=== PATIENT | female | born 1965 | race Caucasian/White ===

== ENCOUNTER 2016-11-03 10:57 | Outpatient (CLI) | payer OTHER | END 2016-11-03 10:58 | disposition home or self-care (01) | DX: M22.41 Chondromalacia patellae, right knee (principal); M71.21 Synovial cyst of popliteal space [Baker], right knee ==

== ENCOUNTER 2017-03-21 09:59 | Outpatient (CLI) | payer OTHER ==
--- NOTE | 2017-03-22 17:44 | Mammography Report ---
DIGITAL SCREENING MAMMOGRAM: 03/21/2017 CLINICAL INDICATION: A 51-year-old with history of bilateral augmentation for screening. COMPARISON: 02/2016, 12/2014, 10/2013, 10/2012, 10/2011, 10/2010, 11/2009. TECHNIQUE: Routine CC and MLO projections were obtained of the breasts. The breasts again demonstrate extremely dense parenchymal bilaterally. Punctate, typically benign ca lcifications are present. Bilateral subpectoral saline implants are stable. No suspicious masses, c lustered microcalcifications, or regions of architectural distortion are identified. IMPRESSION: BENIGN FINDINGS. RECOMMENDATION: ROUTINE ANNUAL SCREENING UNLESS OTHERWISE CLINICALLY INDICATED. BIRADS CATEGORY: 2, BENIGN FINDINGS. STANDARD QUALIFYING STATEMENTS 1. This examination was reviewed with the aid of Computed-Aided Detection (CAD). 2. A negative or benign imaging report should not delay biopsy if clinically suspicious findings are present. Consider surgical consultation if warranted. More than 5% of cancers are not identified b y imaging. 3. Dense breasts may obscure an underlying neoplasm. JOB #: [id number] EXT JOB #:[id number]
== END 2017-03-21 10:00 | disposition home or self-care (01) ==
LOC: DI 09:59
PROVIDERS: ATTEND Obstetrics & Gynecology
DX: Z12.31 Encounter for screening mammogram for malignant neoplasm of breast (principal); Z98.82 Breast implant status
CPT/HCPCS: 77067

== ENCOUNTER 2017-08-30 08:48 | Outpatient (CLI) | payer OTHER ==
--- NOTE | 2017-08-30 13:01 | Ultrasound Report ---
DATE OF SERVICE: 08/30/2017 RIGHT BREAST ULTRASOUND: 08/30/2017 CLINICAL INDICATION: Painful palpable abnormality. right upper inner quadrant. TECHNIQUE: Real-time scanning was performed with business representative static images obtained. FINDINGS: Ultrasound of the right upper inner quadrant was performed. The patient was unable to identify a palpable abnormality on the day of the examination. Heterogeneous parenchyma is seen. No discrete solid or cystic mass is identified. No sonographically suspicious findings are seen. IMPRESSION: NEGATIVE EXAMINATION. RECOMMENDATION: Routine annual screening, next due in February 2018, unless otherwise clinically indicated. BIRADS CATEGORY 1 - NEGATIVE. TD: 08/30/2017 13:00
--- NOTE | 2017-08-30 15:33 | Mammography Report ---
DATE OF SERVICE: 08/30/2017 DIGITAL DIAGNOSTIC RIGHT MAMMOGRAM: 08/30/2017 CLINICAL INDICATION: Palpable painful abnormality right upper inner quadrant. TECHNIQUE: Right CC, MLO, and implant displaced views. The patient was unable to identify the palpable abnormality at the time of the examination, so no marker was placed. COMPARISON: 03/21/2017, 03/15/2016, 12/29/2014, 10/30/2013, 10/28/2012, 11/07/2011, 11/07/2010, 12/06/2009. FINDINGS: The right breast again demonstrates heterogeneously dense fibroglandular parenchyma. Punctate, typically benign calcifications are present. Subpectoral saline implant is stable. No suspicious masses, clustered microcalcifications, or regions of architectural distortion are identified. Specifically, no mammographic abnormality is appreciated in the right upper inner quadrant, in the region indicated on the requisition. Please also refer to right breast ultrasound of the same day. IMPRESSION: BENIGN FINDINGS. RECOMMENDATION: Routine annual screening, next due in February 2018, unless otherwise clinically indicated. BIRADS CATEGORY 2 BENIGN FINDINGS. STANDARD QUALIFYING STATEMENTS: 1. This examination was reviewed with the aid of Computer-Aided Detection (CAD). 2. A negative or benign imaging report should not delay biopsy if clinically suspicious findings are present. Consider surgical consultation if warranted. More than 5% of cancers are not identified by imaging. 3. Dense breasts may obscure an underlying neoplasm. TD: 08/30/2017 15:32
== END 2017-08-30 08:49 | disposition home or self-care (01) ==
LOC: DI 08:48
PROVIDERS: ATTEND Obstetrics & Gynecology
DX: N63.12 Unspecified lump in the right breast, upper inner quadrant (principal); Z98.82 Breast implant status
CPT/HCPCS: 76642

== ENCOUNTER 2017-11-22 10:07 | Outpatient (CLI) | payer OTHER | END 2017-11-22 10:08 | disposition home or self-care (01) | LOC: LAB 10:07 | PROVIDERS: ATTEND Obstetrics & Gynecology | DX: N92.6 Irregular menstruation, unspecified (principal) | CPT/HCPCS: 36415; 83001 ==

== ENCOUNTER 2017-11-23 08:47 | Outpatient (CLI) | payer OTHER ==
--- NOTE | 2017-11-23 12:11 | XRAY Report ---
COMPLETE LUMBAR SPINE: 11/23/2017 CLINICAL INDICATION: Lumbar radiculopathy. FINDINGS: AP, lateral, oblique, coned down views of the lumbar spine demonstrate minimal degenerative disk and facet disease, with mild levoscoliosis. There is no evidence of compression fracture or subluxation. An IUD is incidentally noted in the pelvis. IMPRESSION: MINIMAL DEGENERATIVE CHANGES, WITH MILD LEVOSCOLIOSIS. TD: 11/23/2017 12:11
== END 2017-11-23 08:48 | disposition home or self-care (01) ==
LOC: DI 08:47
PROVIDERS: ATTEND Family Medicine
DX: M51.36 Other intervertebral disc degeneration, lumbar region (principal); M47.896 Other spondylosis, lumbar region; M41.86 Other forms of scoliosis, lumbar region
CPT/HCPCS: 72110

== ENCOUNTER 2018-02-14 13:24 | Outpatient (CLI) | payer OTHER ==
--- NOTE | 2018-02-15 10:37 | MRI Report ---
Procedure Date: 02/14/2018 Accession Number: [id number] / [id number] Procedure: MRI - Lumbar Spine W/O CPT Code: FULL RESULT: EXAM: MRI LUMBAR SPINE WITHOUT CONTRAST EXAM DATE: 02/14/2018 02:07 PM. CLINICAL HISTORY: Chronic low back pain. Bilateral lumbar radiculopathy. COMPARISON: Lumbar spine complete 11/23/2017. TECHNIQUE: Multiplanar, multisequence T1-weighted and fluid-sensitive sequences of the lumbar spine from T12 to S1 without contrast. Other: None. FINDINGS: Alignment: Mild levoscoliosis. Spinal Canal: The conus terminates at L1. The conus medullaris and cauda equina are unremarkable. Bone Marrow: Five [id number] lumbar vertebral bodies are assumed. Vertebral body heights are maintained. No acute marrow edema or displaced pars defect. Disk Levels/Facets: T12-L1: No stenosis or disk herniation. Minimal disk space narrowing and dehydration. L1-L2: No stenosis or disk herniation. Minimal disk space narrowing and dehydration. L2-L3: Minimal disk space dehydration and narrowing. Shallow circumferential disk bulge. Anterior annular fissure. No disk extrusion or significant stenosis. Minimal if any facet arthropathy. L3-L4: Minimal to mild disk space dehydration and narrowing with circumferential disk bulge. Minimal if any facet arthropathy. Additional shallow broad-based right intraforaminal and far lateral protrusion. Minimal foraminal narrowing on the right without nerve root impingement. Patent central canal and left foramen. L4-L5: Intact disk space. Minimal annular bulge. No focal extrusion. Minimal to mild facet hypertrophy. No significant stenosis or focal nerve root impingement. L5-S1: Unremarkable. Musculature: Normal. No edema or fatty atrophy. Other: None. IMPRESSION: Mild multilevel degenerative changes but no evidence for significant stenosis or focal nerve root impingement to explain a radiculopathy. Comment: The following findings are so common in adults without low back pain that while we report their presence, they must be interpreted with caution and in the context of the clinical situation. (Reference Rositak et al, Spine 2001) Prevalence of findings in patients without low back pain: Disk degeneration (any evidence): 92% Disk desiccation/T2 signal loss: 83% Disk height loss: 56% Disk bulge: 64% Disk protrusion: 32% Annular tear/high intensity zone: 38% RADIA
== END 2018-02-14 13:25 | disposition home or self-care (01) ==
LOC: DI 13:24
PROVIDERS: ATTEND Physician Assistant Medical
DX: M51.36 Other intervertebral disc degeneration, lumbar region (principal); M47.896 Other spondylosis, lumbar region
CPT/HCPCS: 72148

== ENCOUNTER 2018-02-28 17:14 | Outpatient (CLI) | payer OTHER | END 2018-02-28 17:15 | disposition home or self-care (01) | LOC: DI 17:14 | PROVIDERS: ATTEND Obstetrics & Gynecology | DX: Z53.9 Procedure and treatment not carried out, unspecified reason (principal) ==

== ENCOUNTER 2018-03-03 15:11 | Outpatient (CLI) | payer OTHER ==
--- NOTE | 2018-03-03 22:28 | Ultrasound Report ---
Procedure Date: 03/03/2018 Accession Number: [id number] / [id number] Procedure: US - Pelvic w/Transvaginal CPT Code: FULL RESULT: EXAM: PELVIC ULTRASOUND. EXAM DATE: 03/03/2018 04:40 PM. CLINICAL HISTORY: Heavy regular menses, dysmenorrhea. COMPARISON: None. TECHNIQUE: Realtime transabdominal pelvic scan performed to identify the uterus and adnexa and as an overview of other pelvic structures, followed by transvaginal scan to provide greater detail of the uterus and adnexa, with static image documentation. FINDINGS: Uterus: 8.1 x 5.5 x 3.6 cm, volume 83.8 cc. Anteverted position. Masses: Anterior fundal intramural fibroid measuring 1.3 x 1.8 x 1.2 cm. Posterior subserosal fibroid measuring 1 x 1 x 0.7 cm. Posterior transmural fibroid measuring 1.4 x 1.1 x 1.4 cm. Endometrium: 3.8 mm. Normal. Cervix: Unremarkable. Right Ovary: Not visualized. Obscured by bowel gas. No abnormality seen in the right adnexa. Left Ovary: 2.2 x 3 x 1.7 cm, volume 5.8 cc. Normal echotexture and blood flow. Dominant follicle measures 1.2 x 1.7 x 1.5 cm, appears simple. Free Fluid: None. IMPRESSION: 1. A few uterine fibroids as described above. The endometrium appears within normal limits. 2. The right ovary is not visualized, obscured by bowel gas. 3. Dominant simple appearing follicle in the left ovary, measures 1.7 cm. RADIA
== END 2018-03-03 15:12 | disposition home or self-care (01) ==
LOC: DI 15:11
PROVIDERS: ATTEND Obstetrics & Gynecology
DX: N94.6 Dysmenorrhea, unspecified (principal); N92.0 Excessive and frequent menstruation with regular cycle; D25.1 Intramural leiomyoma of uterus; D25.2 Subserosal leiomyoma of uterus
CPT/HCPCS: 76830; 76856

== ENCOUNTER 2018-10-15 08:59 | Outpatient (CLI) | payer OTHER ==
[2018-10-15 09:43] LABS: BILIRUBIN,URINE NEGATIVE (NEGATIVE); GLUCOSE, URINE (UA) NEGATIVE (NEGATIVE); KETONES,URINE (UA) NEGATIVE (NEGATIVE); LEUKOCYTE ESTERASE, URINE NEGATIVE (NEGATIVE); NITRITE,URINE NEGATIVE (NEGATIVE); OCCULT BLOOD,URINE TRACE-INTA (NEGATIVE); PROTEIN,URINE NEGATIVE (NEGATIVE); UROBILINOGEN,URINE 0.2 (NORMAL) E.U./dL (NORMAL)
[2018-10-15 09:44] LABS: BASOPHILS % (AUTO) 1.3 %; EOSINOPHILS # (AUTO) 0.1 10^3/uL (0.0-0.7); EOSINOPHILS % (AUTO) 2.8 %; LYMPHOCYTES # (AUTO) 1.2 10^3/uL (1.5-3.5); LYMPHOCYTES % (AUTO) 36.4 %; MEAN CORPUSCULAR HEMOGLOBIN 32.2 pg (27.0-31.0); MEAN CORPUSCULAR HGB CONC 35.2 g/dL (32.0-36.0); MEAN CORPUSCULAR VOLUME 91.5 fL (81.0-99.0); MEAN PLATELET VOLUME 9.3 fL (7.9-10.8); MONOCYTES # (AUTO) 0.3 10^3/uL (0.0-1.0); MONOCYTES % (AUTO) 8.3 %; NEUTROPHILS # (AUTO) 1.7 10^3/uL (1.5-6.6); NEUTROPHILS % (AUTO) 51.2 %; PLT - PLATELET COUNT 178 10^3/uL (130-450); RED BLOOD COUNT 4.05 10^6/uL (4.20-5.40); RED CELL DISTRIBUTION WIDTH 13.3 % (12.0-15.0); WHITE BLOOD COUNT 3.4 x10^3/uL (4.8-10.8)
[2018-10-15 09:48] LABS: CLARITY,URINE CLEAR (CLEAR)
[2018-10-15 10:04] LABS: HB2 TOTAL 14.2 g/dL; HEMOGLOBIN A1C 0.51 g/dL; HEMOGLOBIN A1C % 5.4 % (4.6-6.2)
[2018-10-15 10:09] LABS: ALBUMIN 4.4 g/dL (3.2-5.5); ALBUMIN/GLOBULIN RATIO 1.6 (1.0-2.2); ALKALINE PHOSPHATASE 41 IU/L (42-121); ALT ALANINE AMINOTRANSFERASE 22 IU/L (10-60); AST ASPARTATE AMINOTRANSFERASE 29 IU/L (10-42); BILIRUBIN,TOTAL 1.3 mg/dL (0.2-1.0); BUN - BLOOD UREA NITROGEN 14 mg/dL (6-20); CALCIUM 9.3 mg/dL (8.5-10.3); CARBON DIOXIDE - CO2 26 mmol/L (21-32); CHLORIDE 98 mmol/L (101-111); CHOL/HDL RATIO 2.2 (<4.4); CHOLESTEROL 218 mg/dL; CREATININE 0.7 mg/dL (0.4-1.0); GFR - MDRD 87 (>89); GLUCOSE 99 mg/dL (70-100); HDL CHOLESTEROL 101 mg/dL; SODIUM 132 mmol/L (135-145); TOTAL PROTEIN 7.2 g/dL (6.7-8.2)
[2018-10-15 10:10] LABS: CRP - C-REACTIVE PROTEIN < 1.0 mg/dL (0-1.0)
[2018-10-15 10:28] LABS: LDL CHOLESTEROL,DIRECT 107 mg/dL; LDLD/HDL RATIO 1.1 (<4.4)
== END 2018-10-15 09:00 | disposition home or self-care (01) ==
LOC: LAB 08:59
PROVIDERS: ATTEND Obstetrics & Gynecology
DX: E55.9 Vitamin D deficiency, unspecified (principal); M25.50 Pain in unspecified joint; Z13.220 Encounter for screening for lipoid disorders; Z13.1 Encounter for screening for diabetes mellitus; Z13.29 Encounter for screening for other suspected endocrine disorder
CPT/HCPCS: 36415; 80053; 80061; 81003; 82306; 83036; 83721; 84443; 85025; 85651; 86140

== ENCOUNTER 2018-11-20 08:48 | Outpatient (CLI) | payer OTHER ==
--- NOTE | 2018-11-20 11:30 | Mammography Report ---
Reason: MASTODYNIA,LEFT Procedure Date: 11/20/2018 Accession Number: [id number] / [id number] Procedure: ASHA - Diagnostic Dig Bilat CPT Code: FULL RESULT: EXAM: Diagnostic Dig Bilat DATE: 11/20/2018 9:54 AM CLINICAL HISTORY: Diagnostic examination. Left breast pain in the axilla for approximately one year. TECHNIQUE: (B) - Bilateral CC and MLO views were obtained. MLO views were obtained of the left breast. COMPARISON: 08/30/2017 through 10/28/2012. PARENCHYMAL PATTERN: (VD) - The breast(s) demonstrate(s) extremely dense parenchyma, limiting the sensitivity of mammography. FINDINGS: There are coarse typically benign calcifications. Seen on the left side only, on the left MLO view a prominent axillary nodes individually less than 1 cm in short axis. This finding was further interrogated by focal left axillary ultrasound which demonstrated morphologically normal lymph nodes measuring less than 1 cm in short axis. There are no suspicious masses, calcifications, or areas of distortion within the breast on either side. IMPRESSION: Benign findings. BI-RADS category 2. RECOMMENDATION: (CLIN) - Clinical follow-up for symptoms is recommended. Resolution of reactive lymph nodes is expected. If symptoms persist, repeat diagnostic examination. Continue annual screening mammography. BI-RADS CATEGORY: (2) - Benign Findings. STANDARD QUALIFYING STATEMENTS: 1. This examination was not reviewed with the aid of Computer-Aided Detection (CAD). 2. A negative or benign imaging report should not preclude biopsy if clinically suspicious findings are present. 3. Dense breasts may obscure an underlying neoplasm. 4. This examination was reviewed with the aid of 3D breast imaging (tomosynthesis).
== END 2018-11-20 08:49 | disposition home or self-care (01) ==
LOC: DI 08:48
PROVIDERS: ATTEND Obstetrics & Gynecology
DX: N64.4 Mastodynia (principal)
CPT/HCPCS: 76642; 77066

== ENCOUNTER 2018-12-10 17:08 | Emergency (ER) | payer OTHER ==
--- NOTE | 2018-12-10 17:40 | ED Physician Documentation ---
History of Present Illness - Stated complaint Stated Complaint: DIZZY,BLURRY VISION - Chief complaint Chief Complaint: Neuro - History obtained from History obtained from: Patient - History of Present Illness Timing: Yesterday Pain level max: 0 Pain level now: 0 - Additonal information Additional information: states has felt dizzy since yesterday. States that her R foot felt heavy last night. States this feels normal now. States her vision is blurry. She feels like she is leaning to the L. States feels lightheaded. Room is not spinning. Better with rest. worse with movement. Has had a gradual onset headache today. No fevers. 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 - Present Medications Home Medications: Ambulatory Orders Medication Instructions Recorded Confirmed Spironolactone 25 mg PO DAILY 12/10/14 12/10/18 - Allergies Allergies/Adverse Reactions: Allergies Allergy/AdvReac Type Severity Reaction Status Date / Time Sulfa (Sulfonamide AdvReac Rash Verified 12/10/18 17:20 Antibiotics) - Social History Does the pt smoke?: No Smoking Status: Never smoker Does the pt drink ETOH?: Yes Does the pt have substance abuse?: No - Immunizations Immunizations are current?: Yes - POLST Patient has POLST: No PD ED PE NORMAL - Vitals Vital signs reviewed: Yes - General General: Alert and oriented X 3, No acute distress, Well developed/nourished - HEENT HEENT: Atraumatic, PERRL, EOMI, Ears normal, Moist mucous membranes, Pharynx benign - Neck Neck: Supple, no meningeal sign, No bony TTP - Cardiac Cardiac: RRR, Strong equal pulses - Respiratory Respiratory: No respiratory distress, Clear bilaterally - Abdomen Abdomen: Soft, Non tender, Non distended - Back Back: No spinal TTP - Derm Derm: Warm and dry, No rash - Extremities Extremities: No edema, No calf tenderness / cord - Neuro Neuro: Alert and oriented X 3, mechanical design 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 facilities 2-12 intact, No motor deficit, No sensory deficit, Normal speech, Other (normal cerebellar tests) Eye Opening: Spontaneous Motor: Obeys Commands Verbal: Oriented GCS Score: 15 - Psych Psych: Normal mood, Normal affect Results - Vitals Vitals: Vital Signs - 24 hr 12/10/18 12/10/18 12/10/18 17:18 19:09 21:12 Temperature 36.6 C Heart Rate 60 60 64 Respiratory 14 18 16 Rate Blood Pressure 113/74 108/71 103/71 O2 Saturation 100 100 100 Oxygen O2 Source Room air - EKG (time done) 1719 Rate: Rate (enter#) (62) Rhythm: NSR [place]: Normal Intervals: Normal [place] QRS: Normal Ischemia: Normal ST segments - Labs Labs: Microbiology 12/10/18 18:50 Urine Culture - Preliminary Urine,Clean Catch CULTURE IN PROGRESS. RESULTS TO FOLLOW. Laboratory Tests 12/10/18 12/10/18 12/10/18 17:51 17:51 18:50 WBC 4.6 L RBC 4.14 L Hgb 13.2 Hct 38.2 MCV 92.3 MCH 31.8 H MCHC 34.5 RDW 13.7 Plt Count 204 MPV 9.2 Neut # (Auto) 2.3 Lymph # (Auto) 1.7 [place] # (Auto) 0.4 Eos # (Auto) 0.1 Baso # (Auto) 0.0 Absolute Nucleated RBC 0.00 Nucleated RBC % 0.0 Sodium 137 Potassium 4.1 Chloride 100 L Carbon Dioxide 26 Anion Gap 11.0 BUN 14 Creatinine 0.7 Estimated GFR (MDRD) 87 L Glucose 97 Calcium 9.7 Total Bilirubin 0.9 AST 26 ALT 21 Alkaline Phosphatase 50 Total Protein 7.2 Albumin 4.5 Globulin 2.7 Albumin/Globulin Ratio 1.7 Lipase 35 Urine Color YELLOW Urine Clarity CLEAR Urine pH 6.5 Ur Specific [place] <=1.005 Urine Protein NEGATIVE Urine Glucose (UA) NEGATIVE Urine Ketones NEGATIVE Urine Occult Blood NEGATIVE Urine Nitrite NEGATIVE Urine Bilirubin NEGATIVE Urine Urobilinogen 0.2 (NORMAL) Ur Leukocyte Esterase SMALL H Urine RBC None Seen Urine WBC 6-10 H Ur Epithelial Cells RARE Transitional Ur Squamous Epith Cells RARE Squamous Urine Bacteria Rare Ur Microscopic Review INDICATED Urine Culture Comments INDICATED - Rads (name of study) head CT Radiology: Prelim report reviewed, EMP read contemporaneously, See rad report (No acute intracranial CT abnormality. ) PD MEDICAL DECISION MAKING - ED course Complexity details: reviewed results, re-evaluated patient, considered differential, d/w patient ED course: 53-year-old female with symptoms of unclear etiology. Possible TIA? Possible dehydration? Feels better after IV fluids. We discussed staying in the hospital overnight for observation and a stroke work-up in the morning. She does not want to stay in the hospital and will follow up with her doctor in the morning for an urgent MRI. She will return if her symptoms recur. Until then will start on aspirin 81 mg by mouth daily. Patient is asymptomatic currently. Patient counseled regarding signs and symptoms for which I believe and urgent re-evaluation would be necessary. Patient with good understanding of and agreement to plan and is comfortable going home at this time This document was made in part using voice recognition software. While efforts are made to proofread this document, sound alike and grammatical errors may occur. Departure - Departure Disposition: 01 Home, Self Care Clinical Impression: TIA (transient ischemic attack), Dehydration Condition: Stable Instructions: ED Dehydration, ED Transient Ischemic Attack Follow-Up: Kathy Finch PA-C [Primary Care Provider] - Tomorrow Comments: We discussed staying in the hospital tonight so that you could have a full stroke work-up performed. You have chosen to go home at this time and have this completed as an outpatient. I think this is reasonable in your case. You need to contact your doctor tomorrow for an urgent MRI. You also need to start on a baby aspirin, 81 mg by mouth daily. Return immediately for any recurrent neurological symptoms. Discharge Date/Time: 12/10/18 21:21 NIHSS - Time Time: 17:34 - Level of Consciousness Level of consciousness: (0) Alert, Keenly responsive LOC Questions: (0) Answers both Q's correct LOC Commands: (0) Performs both correctly - Gaze Best Gaze: (0) Normal - Visual Visual: (0) No loss - Facial Palsy Facial Palsy: (0) Normal, symmetrical movement - Motor Arms (both separate) Motor Arm (right): (0) No drift Motor Arm (left): (0) No drift - Motor Legs (both separate) Motor Leg (right): (0) No drift Motor Leg (left): (0) No drift - Limb Ataxia Limb Ataxia: (0) Absent - Sensory Sensory: (0) Normal - Best Language Best Language: (0) No aphasia - Dysarthria Dysarthria: (0) Normal - Extinction and Inattention (formally neg Extinction and inattention: (0) No abnormality - Total Score/Results Total Score/Result: 0
[2018-12-10 17:58] LABS: BASOPHILS % (AUTO) 1.1 %; EOSINOPHILS # (AUTO) 0.1 10^3/uL (0.0-0.7); EOSINOPHILS % (AUTO) 3.2 %; HGB - HEMOGLOBIN 13.2 g/dL (12.0-16.0); LYMPHOCYTES # (AUTO) 1.7 10^3/uL (1.5-3.5); LYMPHOCYTES % (AUTO) 37.3 %; MEAN CORPUSCULAR HEMOGLOBIN 31.8 pg (27.0-31.0); MEAN CORPUSCULAR HGB CONC 34.5 g/dL (32.0-36.0); MEAN CORPUSCULAR VOLUME 92.3 fL (81.0-99.0); MEAN PLATELET VOLUME 9.2 fL (7.9-10.8); MONOCYTES # (AUTO) 0.4 10^3/uL (0.0-1.0); MONOCYTES % (AUTO) 7.8 %; NEUTROPHILS # (AUTO) 2.3 10^3/uL (1.5-6.6); NEUTROPHILS % (AUTO) 50.6 %; PLT - PLATELET COUNT 204 10^3/uL (130-450); RED BLOOD COUNT 4.14 10^6/uL (4.20-5.40); RED CELL DISTRIBUTION WIDTH 13.7 % (12.0-15.0); WHITE BLOOD COUNT 4.6 x10^3/uL (4.8-10.8)
[2018-12-10 18:07] LABS: ALBUMIN 4.5 g/dL (3.2-5.5); ALBUMIN/GLOBULIN RATIO 1.7 (1.0-2.2); BILIRUBIN,TOTAL 0.9 mg/dL (0.2-1.0); CALCIUM 9.7 mg/dL (8.5-10.3); CREATININE 0.7 mg/dL (0.4-1.0); TOTAL PROTEIN 7.2 g/dL (6.7-8.2)
[2018-12-10] MEDS ORDERED: SODIUM CHLORIDE 0.9% 1,000 ML IV ONE (18:43)
--- NOTE | 2018-12-10 19:11 | CT Report ---
Reason: headache, blurred vision Procedure Date: 12/10/2018 Accession Number: [id number] / [id number] Procedure: CT - HEAD WO CPT Code: FULL RESULT: EXAM: CT HEAD EXAM DATE: 12/10/2018 06:08 PM. CLINICAL HISTORY: Headache, blurred vision. COMPARISON: None. TECHNIQUE: Multiaxial CT images were obtained from the foramen magnum to the vertex. Reformats: Sagittal and coronal. IV contrast: None. In accordance with CT protocol optimization, one or more of the following dose reduction techniques were utilized for this exam: automated exposure control, adjustment of mA and/or KV based on patient size, or use of iterative reconstructive technique. FINDINGS: Parenchyma: No intraparenchymal hemorrhage. No evidence of mass, midline shift, or CT findings of infarction. Colin-white differentiation is distinct. Extraaxial Spaces: Normal for age. No subdural or epidural collections identified. Ventricles: Normal in size and position. Sinuses and Orbits: Imaged paranasal sinuses, orbits, and mastoids show no significant abnormality. Bones: No evidence of fracture or calvarial defect. Other: None. IMPRESSION: No acute intracranial CT abnormality. RADIA
[2018-12-10 19:16] LABS: BILIRUBIN,URINE NEGATIVE (NEGATIVE); GLUCOSE, URINE (UA) NEGATIVE (NEGATIVE); KETONES,URINE (UA) NEGATIVE (NEGATIVE); LEUKOCYTE ESTERASE, URINE SMALL (NEGATIVE); NITRITE,URINE NEGATIVE (NEGATIVE); OCCULT BLOOD,URINE NEGATIVE (NEGATIVE); PH,URINE 6.5 PH (5.0-7.5); PROTEIN,URINE NEGATIVE (NEGATIVE); UROBILINOGEN,URINE 0.2 (NORMAL) E.U./dL (NORMAL)
[2018-12-10 19:18] LABS: CLARITY,URINE CLEAR (CLEAR)
[2018-12-10 19:29] LABS: BACTERIA,URINE Rare /HPF (None Seen); EPITHELIAL CELLS,UR RARE Transitional /HPF (<= Few); RBC,URINE None Seen /HPF (0-5); SQUAMOUS EPITHELIAL CELL,UR RARE Squamous (<= Few)
[2018-12-10] MEDS ORDERED: ASPIRIN CHEW 81 MG TABLET PO STA (21:07)
[2018-12-10 21:13] VITALS: BP 103/71
== END 2018-12-10 21:21 | disposition home or self-care (01) ==
LOC: ED 17:08
DX: G45.9 Transient cerebral ischemic attack, unspecified (principal); E86.0 Dehydration
CPT/HCPCS: 36415; 70450; 80053; 81001; 83690; 85025; 87086; 93005; 96360; 99283; 99284; A9270; 81003

== ENCOUNTER 2018-12-13 16:59 | Outpatient (CLI) | payer OTHER ==
[2018-12-13] MEDS ORDERED: GADOBUTROL 7.5 MMOL/7.5 ML VIAL ONE (18:34)
[2018-12-13] MEDS ORDERED: GADOBUTROL 7.5 MMOL/7.5 ML VIAL IVP ONE (18:35)
--- NOTE | 2018-12-14 08:16 | MRI Report ---
Reason: NUMBNESS, RIGHT, DIZZINESS Procedure Date: 12/13/2018 Accession Number: [id number] / [id number] Procedure: MRI - Brain W/WO CPT Code: FULL RESULT: EXAM: MRI BRAIN WITHOUT AND WITH CONTRAST EXAM DATE: 12/13/2018 06:44 PM. CLINICAL HISTORY: Right side numbness and dizziness. COMPARISON: No prior MRI. TECHNIQUE: Multiplanar, multisequence T1-weighted and fluid-sensitive MR sequences of the brain were performed. Sequences optimized for routine evaluation. Other: None. IV Contrast: 5 mL Gadavist. FINDINGS: Brain Volume: Normal for age. Parenchyma: No acute or recent ischemic infarct. No hemorrhage. No mass-effect, midline shift or abnormal subdural fluid collection. No midline development anomaly or Chiari malformation. There are at least 20 separate scattered punctate nodular foci of subcortical and deep white matter T2 hyperintense signal changes in both cerebral hemispheres without associated enhancement. No enhancing or space occupying mass. Ventricles/Cisterns: No hydrocephalus. No abnormal extra-axial fluid collection or hemorrhage. Orbits: Symmetric and unremarkable. Sella [place]: No space-occupying mass. No abnormal pituitary enlargement. Unremarkable appearance of the optic chiasm. IAC: Symmetric and unremarkable. Vasculature: Normal signal flow void is seen in the major arterial structures at the skull base. Sinuses: No acute sinus disease. Bones: No evidence for focal marrow edema. Other: None. IMPRESSION: 1. No acute abnormality or enhancing mass. 2. Normal brain volume for age. No hydrocephalus. 3. There are several scattered punctate nonenhancing nonspecific foci of cerebral white matter T2 hyperintensity. These may be attributable to chronic postinflammatory or postischemic gliosis. RADIA
== END 2018-12-13 17:00 | disposition home or self-care (01) ==
LOC: DI 16:59
PROVIDERS: ATTEND Physician Assistant
DX: R20.0 Anesthesia of skin (principal); R42 Dizziness and giddiness
CPT/HCPCS: 70553; A9585

== ENCOUNTER 2019-04-17 11:35 | Outpatient (CLI) | payer OTHER ==
--- NOTE | 2019-04-17 15:58 | Ultrasound Report ---
Reason: THYROID CYST Procedure Date: 04/17/2019 Accession Number: [id number] / [id number] Procedure: US - Head or Neck Soft Tissue CPT Code: FULL RESULT: EXAM: THYROID ULTRASOUND EXAM DATE: 04/17/2019 12:12 PM. CLINICAL HISTORY: THYROID CYST. COMPARISON: BRAIN W/WO 12/13/2018 6:05 PM THYROID 05/17/2010 2:32 PM. TECHNIQUE: Real time sonographic imaging of the thyroid was performed by the band maker. Multiple specialty sales representative static images were saved for review. FINDINGS: THYROID GLAND: Right Lobe: 5.4 x 1.1 x 1.3 cm, volume 4 cc. Mildly heterogeneous background echotexture. Right Lobe Nodules: Upper pole avascular cyst 3 x 2 x 2 mm. Left Lobe: 6.2 x 1.4 x 1.3 cm, volume cc. Normal background echotexture. Left Lobe Nodules: Inferior left lobe cyst 3 x 1.1 x 1.3 cm with one septation; previously measured 1 x 0.5 x 0.7 cm on 05/17/2010. Isthmus: 0.16 cm AP. Isthmic Nodules: None. LYMPH NODES: No adenopathy demonstrated in the central or lateral compartment. OTHER: None. IMPRESSION: 3 x 1.1 x 1.3 cm inferior left lobe cyst containing one septation, significantly increased in size compared with 05/17/2010. Management recommendations are based on 2015 [place] [employer] Management Guidelines for Adult Patients with Thyroid Nodules and Differentiated Thyroid Cancer. RADIA
== END 2019-04-17 11:36 | disposition home or self-care (01) ==
LOC: DI 11:35
PROVIDERS: ATTEND Physician Assistant Medical
DX: E04.1 Nontoxic single thyroid nodule (principal)
CPT/HCPCS: 76536

== ENCOUNTER 2019-05-20 14:00 | Outpatient (CLI) | payer OTHER ==
[2019-05-20 15:42] LABS: FREE T4 (FREE THYROXINE) 0.69 ng/dL (0.58-1.64)
[2019-05-20 15:46] LABS: TOTAL T3 1.29 ng/mL (0.87-1.78)
[2019-05-21 10:19] LABS: THYROID STIMULATING HORMONE 1.36 uIU/mL (0.34-5.60)
== END 2019-05-20 14:01 | disposition home or self-care (01) ==
LOC: LAB 14:00
PROVIDERS: ATTEND Otolaryngology Plastic Surgery within the Head & Neck
DX: E04.1 Nontoxic single thyroid nodule (principal)
CPT/HCPCS: 36415; 84439; 84443; 84480

== ENCOUNTER 2019-10-17 15:30 | Outpatient (CLI) | payer BC, OTHER | END 2019-10-17 15:31 | disposition home or self-care (01) | LOC: LAB 15:30 | PROVIDERS: ATTEND Nurse Practitioner Obstetrics & Gynecology | DX: R53.83 Other fatigue (principal) | CPT/HCPCS: 36415; 82306; 84443 ==

== ENCOUNTER 2020-03-15 10:46 | Outpatient (CLI) | payer BC, OTHER ==
[2020-03-15 11:13] LABS: EOSINOPHILS # (AUTO) 0.1 10^3/uL (0.0-0.7); HGB - HEMOGLOBIN 13.5 g/dL (12.0-16.0); LYMPHOCYTES # (AUTO) 1.3 10^3/uL (1.5-3.5); LYMPHOCYTES % (AUTO) 33.9 %; MEAN CORPUSCULAR HEMOGLOBIN 32.7 pg (27.0-31.0); MEAN CORPUSCULAR HGB CONC 34.9 g/dL (32.0-36.0); MEAN CORPUSCULAR VOLUME 93.7 fL (81.0-99.0); MEAN PLATELET VOLUME 11.1 fL (7.9-10.8); MONOCYTES # (AUTO) 0.3 10^3/uL (0.0-1.0); MONOCYTES % (AUTO) 7.8 %; NEUTROPHILS # (AUTO) 2.1 10^3/uL (1.5-6.6); NEUTROPHILS % (AUTO) 54.3 %; PLT - PLATELET COUNT 180 10^3/uL (130-450); RED BLOOD COUNT 4.13 10^6/uL (4.20-5.40); RED CELL DISTRIBUTION WIDTH 13.4 % (12.0-15.0)
[2020-03-15 11:20] LABS: ALBUMIN 4.7 g/dL (3.2-5.5); ALBUMIN/GLOBULIN RATIO 1.9 (1.0-2.2); ALKALINE PHOSPHATASE 45 IU/L (42-121); ALT ALANINE AMINOTRANSFERASE 23 IU/L (10-60); AST ASPARTATE AMINOTRANSFERASE 28 IU/L (10-42); BILIRUBIN,TOTAL 1.2 mg/dL (0.2-1.0); BUN - BLOOD UREA NITROGEN 16 mg/dL (6-20); CALCIUM 9.3 mg/dL (8.5-10.3); CARBON DIOXIDE - CO2 26 mmol/L (21-32); CHLORIDE 103 mmol/L (101-111); CHOL/HDL RATIO 1.9 (<4.4); CHOLESTEROL 227 mg/dL; CREATININE 0.7 mg/dL (0.4-1.0); GLUCOSE 103 mg/dL (70-100); HDL CHOLESTEROL 121 mg/dL; SODIUM 139 mmol/L (135-145); TOTAL PROTEIN 7.2 g/dL (6.7-8.2)
[2020-03-15 12:01] LABS: FOLLICLE STIMULATING HORMONE 180.92 mIU/mL; LUTEINIZING HORMONE 51.99 mIU/mL
== END 2020-03-15 10:47 | disposition home or self-care (01) ==
LOC: LAB 10:46
PROVIDERS: ATTEND Physician Assistant Medical
DX: Z00.00 Encounter for general adult medical examination without abnormal findings (principal); N92.0 Excessive and frequent menstruation with regular cycle
CPT/HCPCS: 36415; 80053; 80061; 82670; 83001; 83002; 83721; 84443; 85025

== ENCOUNTER 2020-04-09 13:41 | Outpatient (CLI) | payer BC, OTHER ==
--- NOTE | 2020-04-12 12:08 | Mammography Report ---
BILATERAL DIGITAL SCREENING MAMMOGRAM 3D/2D: 04/09/2020 CLINICAL: Routine screening. Comparison is made to exams dated: 03/21/2017 mammogram, 11/20/2018 mammogram, 03/15/2016 mammogram, an d 12/29/2014 mammogram - [facility]. The tissue of both breasts is extremely dense, which lowers the sensitivity of mammography. There are benign calcifications in both breasts. No significant masses, calcifications, or other findings are seen in either breast. There has been no significant interval change. IMPRESSION: BENIGN There is no mammographic evidence of malignancy. A 1 year screening mammogram is recommended. This exam was interpreted at Station ID: [id number]. NOTE: For mammograms, a report in lay terms will be sent to the patient. Approximately 15% of breast malignancies will not be visualized mammographically. In the management of a palpable breast mass, a negative mammogram must not discourage biopsy of a clinically suspicious lesion. Electronically Signed By: Nahun Hayden M.D. [email or web address]:04/09/2020 16:35:39 ACR BI-RADS Category 2: Benign Finding(s) 3342F PARENCHYMAL PATTERN: (VD) - The breast(s) demonstrate(s) extremely dense parenchyma, limiting the sen sitivity of mammography. BI-RADS CATEGORY: (2) - 2 RECOMMENDATION: (ANNUAL) - Recommend routine annual screening mammography. [id number] 1 year screening LATERALITY: (B)
== END 2020-04-09 13:42 | disposition home or self-care (01) ==
LOC: DI.N 13:41
PROVIDERS: ATTEND Nurse Practitioner Obstetrics & Gynecology
DX: Z12.31 Encounter for screening mammogram for malignant neoplasm of breast (principal)
CPT/HCPCS: 77063; 77067

== ENCOUNTER 2020-06-01 15:45 | Emergency (ER) | payer BC, OTHER ==
--- NOTE | 2020-06-01 16:16 | ED Physician Documentation ---
History of Present Illness - Stated complaint Stated Complaint: FAST HEART RATE, CHEST TIGHTNESS - Chief complaint Chief Complaint: Cardiac - History obtained from History obtained from: Patient - History of Present Illness Timing: Prior to arrival - Additonal information Additional information: 54-year-old female presents to the emergency department for evaluation of a racing heart that lasted about 10 minutes while she was at work. She reports to me a history of previous atrial fibrillation though she has never had an EKG to suggest this. But she states that in the past she has had a sensation of a racing heart. This afternoon she tried to cough and place her head between her knees but she got progressively more dizzy therefore she came to the emergency department. By the time she arrived here her heart rate had slowed to a normal rhythm in the 60s and she no longer had the symptoms of a racing heart. She did report that she felt some chest pressure and tightness at the time this was occurring. No previous history of myocardial infarction though she has been evaluated for possible TIA in the past. She does not take any heart rate or rhythm control medications. Takes only a daily aspirin. No tobacco. Social EtOH. Review of Systems Constitutional: reports: Reviewed and negative Eyes: reports: Reviewed and negative Ears: reports: Reviewed and negative Nose: reports: Reviewed and negative Throat: reports: Reviewed and negative Cardiac: reports: Chest pain / pressure, Palpitations. denies: Pedal edema, Calf pain Respiratory: reports: Other (chest tightness). 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: section - Present Medications Home Medications: Ambulatory Orders Medication Instructions Recorded Confirmed Spironolactone 25 mg PO DAILY 12/10/14 12/10/18 - Allergies Allergies/Adverse Reactions: Allergies Allergy/AdvReac Type Severity Reaction Status Date / Time Sulfa (Sulfonamide AdvReac Rash Verified 06/01/20 15:54 Antibiotics) - Social History Does the pt smoke?: No Smoking Status: Never smoker Does the pt drink ETOH?: Yes Does the pt have substance abuse?: No - Immunizations Immunizations are current?: Yes - POLST Patient has POLST: No PD ED PE EXPANDED - General General: Alert, No acute distress, Well developed/nourished - HEENT HEENT: Atraumatic, PERRL, EOMI - Neck Neck: Supple w/out meningeal sx, No tenderness. No: Adenopathy - Cardiac Cardiac: Regular Rate, Regular Rhythm, Radial strong equal, Cap refill < 2 sec. No: Murmur Present - Respiratory Respiratory: Clear to ausultation jermaine. No: Distress, Labored - Abdomen Abdomen: Normal Bowel sounds. No: Tender to palpation - Derm Derm: Normal color, Petecchiae, Purpura - Extremities Extremities: Normal - Neuro Neuro: Alert and Oriented X 3, CNII-XII intact, Normal gait, Normal finger nose, Normal speech - GCS Eye Opening: Spontaneous Motor: Obeys Commands Verbal: Oriented Total: 15 Results - Vitals Vitals: Vital Signs - 24 hr 06/01/20 06/01/20 06/01/20 15:49 16:24 16:30 Temperature 37 C Heart Rate 66 66 67 Respiratory 18 18 18 Rate Blood Pressure 116/68 111/64 109/62 O2 Saturation 100 100 100 Oxygen O2 Source Room air - EKG (time done) 1551 Rate: Rate (enter#) (68) Rhythm: NSR [place]: Normal Intervals: Normal TX QRS: Normal Ischemia: Normal ST segments Compare to prior EKG: Unchanged from prior EKG Computer interpretation: Agree with computer - Labs Labs: Laboratory Tests 06/01/20 06/01/20 06/01/20 16:19 16:19 16:19 WBC 4.5 L RBC 4.00 L Hgb 12.9 Hct 36.5 L MCV 91.3 MCH 32.3 H MCHC 35.3 RDW 12.7 Plt Count 188 MPV 11.2 H Neut # (Auto) 2.3 Lymph # (Auto) 1.7 Randall # (Auto) 0.4 Eos # (Auto) 0.1 Baso # (Auto) 0.0 Absolute Nucleated RBC 0.00 Nucleated RBC % 0.0 Sodium 137 Potassium 3.8 Chloride 104 Carbon Dioxide 24 Anion Gap 9.0 BUN 14 Creatinine 0.7 Estimated GFR (MDRD) 87 L Glucose 105 H Calcium 9.3 Total Bilirubin 0.9 AST 29 ALT 26 Alkaline Phosphatase 52 Troponin I High Sens 4.4 Total Protein 7.4 Albumin 4.4 Globulin 3.0 Albumin/Globulin Ratio 1.5 Lipase 31 TSH 06/01/20 16:19 WBC RBC Hgb Hct MCV MCH MCHC RDW Plt Count MPV Neut # (Auto) Lymph # (Auto) Randall # (Auto) Eos # (Auto) Baso # (Auto) Absolute Nucleated RBC Nucleated RBC % Sodium Potassium Chloride Carbon Dioxide Anion Gap BUN Creatinine Estimated GFR (MDRD) Glucose Calcium Total Bilirubin AST ALT Alkaline Phosphatase Troponin I High Sens Total Protein Albumin Globulin Albumin/Globulin Ratio Lipase TSH 3.32 PD MEDICAL DECISION MAKING - ED course Complexity details: reviewed old records, reviewed results, re-evaluated patient, considered differential, d/w patient, d/w family ED course: 54-year-old female presents the emergency department for evaluation of a episode of racing heart and tachycardia that lasted about 10 minutes prior to arrival. She reports similar episodes in the past but none that have lasted this long. On presentation to the emergency department her EKG was sinus rhythm in the 80s. Her chest x-ray was unremarkable without cardiomegaly or pulmonary findings. Routine lab screening including high-sensitivity troponin was negative. During the time of her evaluation here in the emergency department she has had no further episodes of tachycardia. These findings were discussed with the patient and she feels ready for discharge home. I have recommended close follow-up with her primary care provider and possible consideration for a Holter monitor. Emergent return precautions discussed Departure - Departure Disposition: 01 Home, Self Care Clinical Impression: Palpitations Condition: Stable Record reviewed to determine appropriate education?: Yes Instructions: ED Palpitations Comments: Damien the chest x-ray and EKG today are normal. Your labs are also essentially unremarkable. Your thyroid hormone was also normal. The cause of your episode of palpitations or the sensation of a racing heart is not clear at this time. Would like you to schedule close follow-up with your primary care provider. They can consider outpatient cardiology referral or a Holter monitor. If at any point you develop a racing heart again feel faint or dizzy or short of breath please return immediately to the ER
[2020-06-01 16:39] LABS: BASOPHILS % (AUTO) 0.9 %; EOSINOPHILS # (AUTO) 0.1 10^3/uL (0.0-0.7); EOSINOPHILS % (AUTO) 2.2 %; HGB - HEMOGLOBIN 12.9 g/dL (12.0-16.0); LYMPHOCYTES # (AUTO) 1.7 10^3/uL (1.5-3.5); LYMPHOCYTES % (AUTO) 38.7 %; MEAN CORPUSCULAR HEMOGLOBIN 32.3 pg (27.0-31.0); MEAN CORPUSCULAR HGB CONC 35.3 g/dL (32.0-36.0); MEAN CORPUSCULAR VOLUME 91.3 fL (81.0-99.0); MEAN PLATELET VOLUME 11.2 fL (7.9-10.8); MONOCYTES # (AUTO) 0.4 10^3/uL (0.0-1.0); MONOCYTES % (AUTO) 7.8 %; NEUTROPHILS # (AUTO) 2.3 10^3/uL (1.5-6.6); NEUTROPHILS % (AUTO) 50.2 %; PLT - PLATELET COUNT 188 10^3/uL (130-450); RED CELL DISTRIBUTION WIDTH 12.7 % (12.0-15.0); WHITE BLOOD COUNT 4.5 x10^3/uL (4.8-10.8)
--- NOTE | 2020-06-01 16:39 | XRAY Report ---
PROCEDURE: Chest 1 View X-Ray INDICATIONS: Chest Pain TECHNIQUE: One view of the chest was acquired. COMPARISON: Chest x-ray 10/04/2015 FINDINGS: Surgical changes and devices: None. Lungs and pleura: No pleural effusions or pneumothorax. Lungs are clear. Mediastinum: Mediastinal contours appear normal. Heart size is normal. Bones and chest wall: No suspicious bony lesions. Overlying soft tissues appear unremarkable. IMPRESSION: No acute pulmonary process. Reviewed by: Harika Bar MD on 06/01/2020 4:38 PM [facility] Approved by: Harika Bar MD on 06/01/2020 4:38 PM [facility] Station ID: [id number]
[2020-06-01 16:41] LABS: ALBUMIN 4.4 g/dL (3.2-5.5); ALBUMIN/GLOBULIN RATIO 1.5 (1.0-2.2); BILIRUBIN,TOTAL 0.9 mg/dL (0.2-1.0); CALCIUM 9.3 mg/dL (8.5-10.3); CREATININE 0.7 mg/dL (0.4-1.0); TOTAL PROTEIN 7.4 g/dL (6.7-8.2)
[2020-06-01 17:18] VITALS: BP 108/67
== END 2020-06-01 17:25 | disposition home or self-care (01) ==
LOC: ED 15:45
DX: R00.2 Palpitations (principal); R07.89 Other chest pain; R42 Dizziness and giddiness; Z79.82 Long term (current) use of aspirin
CPT/HCPCS: 36415; 71045; 80053; 83690; 84443; 84484; 85025; 93005; 99284

== ENCOUNTER 2020-08-20 16:47 | Outpatient (CLI) | payer BC, OTHER ==
--- NOTE | 2020-08-20 20:10 | Ultrasound Report ---
PROCEDURE: Head or Neck Soft Tissue INDICATIONS: THYROID CYST TECHNIQUE: Real-time scanning was performed of the thyroid gland, with image documentation. COMPARISON: 04/17/2019 FINDINGS: Right: Thyroid lobe measures 4.7 x 1.3 x 1.4 cm, and has multiple nodules. Left: Thyroid lobe measures 5.8 x 1.7 x 1.1 cm, and has multiple nodules. Isthmus: 2 mm thick. Nodule number: 1 Location: Right superior Size: 0.3 x 0.1 x 0.2 cm. Composition: Cystic Echogenicity: Anechoic Shape: wider than tall. Margins: Smooth Echogenic foci: None Total points: 0 ACR TI-RADS category: Benign Nodule number: 2 Location: Right middle pole Size: 0.3 x 0.2 x 0.3 cm. Composition: Solid Echogenicity: Hypoechoic Shape: wider than tall. Margins: Smooth Echogenic foci: None Total points: 4 ACR TI-RADS category: Moderately suspicious Nodule number: 3 Location: Left lower pole Size: 2.9 x 1.6 x 1.6 cm. Previous measurements were 3.0 x 1.1 x 1.3 cm. Composition: Predominantly cystic Echogenicity: Anechoic Shape: wider than tall. Margins: Smooth Echogenic foci: None Total points: 0 ACR TI-RADS category: Benign IMPRESSION: 1. Recurrent benign left lobe thyroid cyst, measuring 2.9 cm in maximum diameter. 2. Tiny solid right thyroid nodule. Please refer to the chart below. At this point, no routine imagin g follow-up is required for a solid lesion of this size. ACR TI-RADS definitions and recommendations: TI-RADS 1 (benign): 0 points. FNA not needed. TI-RADS 2 (not suspicious): 2 points. FNA not needed. TI-RADS 3 (mildly suspicious): 3 points. ? FNA if 2.5 cm or larger, follow up if 1.5 cm or larger (at 1, 3, and 5 years). TI-RADS 4 (moderately suspicious): 4-6 points. ? FNA if 1.5 cm or larger, follow up if 1 cm or larger (at 1, 2, 3, and 5 years). TI-RADS 5 (highly suspicious): 7 points or more. ? FNA if 1 cm or larger, follow up if 0.5 cm or larger (every year for 5 years). Reviewed by: Kishor Nieves MD on 08/20/2020 8:09 PM PST Approved by: Kishor Nieves MD on 08/20/2020 8:09 PM PST Station ID: [id number]
== END 2020-08-20 16:48 | disposition home or self-care (01) ==
LOC: DI 16:47
PROVIDERS: ATTEND Physician Assistant Medical
DX: E04.2 Nontoxic multinodular goiter (principal)

== ENCOUNTER 2020-08-24 09:51 | Outpatient (CLI) | payer BC, OTHER ==
--- NOTE | 2020-08-24 16:44 | MRI Report ---
PROCEDURE: Lumbar Spine W/O INDICATIONS: LUMBAR RADICULOPATHY TECHNIQUE: Noncontrast sagittal T1 spin echo and T2 fast echo, sagittal STIR, axial T1 and T2 fast spin echo thr ough the lumbar spine. In cases with scoliosis, additional coronal T2 fast spin echo may be performe d. COMPARISON: 02/14/2018 MRI lumbar spine. FINDINGS: Image quality: Excellent. Alignment and Curvature: Is normal lumbar vertebral body height and alignment. Bone Marrow: No suspicious focal marrow signal abnormality or significant marrow edema demonstrated. Spinal Cord: Conus medullaris terminates at the normal level. Visualized cord demonstrates normal s ignal and size. Regional Soft Tissues: No prevertebral or paraspinous soft tissue mass. T12-L1: No spinal canal or neural foraminal stenosis. L1-L2: No spinal canal or neural foraminal stenosis. L2-L3: Disc bulge flattens the ventral thecal sac without mass effect upon the traversing L3 nerve roots. No neural foraminal stenosis. L3-L4: Disc bulge flattens ventral thecal sac without mass effect upon the traversing L4 nerve root s. Foraminal components of the disc bulge exhibited trace neuroforaminal narrowing in conjunction wit h mild facet hypertrophy. L4-L5: Diffuse disc bulge flattens ventral thecal sac without mass effect upon the traversing L5 ne rve roots. Foraminal component is a disc bulge and facet hypertrophy contribute to mild bilateral frances ral foraminal stenosis. Small bilateral facet effusions. L5-S1: Mild disc bulge with disc material closely approximating but not displacing the descending S 1 nerve roots in the subarticular zones. IMPRESSION: Mild degenerative changes with no findings of focal nerve root impingement to explain ra dicular symptoms. No significant change from 2018 exam. Reviewed by: Enzo Gauthier MD on 08/24/2020 4:42 PM PST Approved by: Enzo Gauthier MD on 08/24/2020 4:42 PM PST Station ID: [id number]
== END 2020-08-24 09:52 | disposition home or self-care (01) ==
LOC: DI 09:51
PROVIDERS: ATTEND Physician Assistant Medical
DX: M47.816 Spondylosis without myelopathy or radiculopathy, lumbar region (principal); M51.36 Other intervertebral disc degeneration, lumbar region; M48.061 Spinal stenosis, lumbar region without neurogenic claudication

== ENCOUNTER 2020-09-15 07:00 | Outpatient (CLI) | payer BC, OTHER ==
[2020-09-15 12:41] LABS: THYROID STIMULATING HORMONE 2.48 uIU/mL (0.34-5.60)
[2020-09-15 12:42] LABS: FREE T3 2.56 pg/mL (2.5-3.9)
[2020-09-15 12:43] LABS: FREE T4 (FREE THYROXINE) 0.7 ng/dL (0.58-1.64)
== END 2020-09-15 23:59 | disposition home or self-care (01) ==
LOC: LAB.N 07:00
PROVIDERS: ATTEND Physician Assistant Medical
DX: N89.8 Other specified noninflammatory disorders of vagina (principal); E04.1 Nontoxic single thyroid nodule
CPT/HCPCS: 36415; 84403; 84439; 84443; 84481

== ENCOUNTER 2020-09-15 09:30 | Outpatient (CLI) | payer BC, OTHER | END 2020-09-15 09:31 | disposition home or self-care (01) | LOC: LAB.N 09:30 | PROVIDERS: ATTEND Physician Assistant Medical | DX: Z53.9 Procedure and treatment not carried out, unspecified reason (principal) ==

== ENCOUNTER 2020-10-19 08:20 | Outpatient (CLI) | payer BC, OTHER ==
--- NOTE | 2020-10-19 16:44 | DEXA Report ---
PROCEDURE: Dexa Spine and/or Hip INDICATIONS: POST MENOPAUSAL TECHNIQUE: Dual energy x-ray absorptiometry (DXA) was performed on a TIMPIK System. Regions measur ed are the AP Spine, femoral neck, and if needed forearm. COMPARISON: None. FINDINGS: Lumbar Spine: Bone Mineral Density 1.041 g/cm/cm,T score -1.2, minimal osteopenia Left Hip: Bone Mineral Density 0.889 g/cm/cm,T score -0.9, normal Left Femoral Neck: Bone Mineral Density 0.879 g/cm/cm, T score -1.1, minimal osteopenia (T score greater or equal to -1.0: NORMAL) (T score from -1.1 to -2.4: OSTEOPENIA) (T score less than or equal to -2.5 to: OSTEOPOROSIS) Impression: Minimal osteopenia within the lumbar spine and left femoral neck. Patients with diagnosis of osteoporosis or osteopenia should have regular bone mineral density assess ment. For those eligible for Medicare, routine testing is allowed once every 2 years. Testing frequ ency can be increased for patients who have rapidly progressing disease or for those who are receivin g medical therapy to restore bone mass. Reviewed by: Harika Bar MD on 10/19/2020 4:43 PM PDT Approved by: Harika Bar MD on 10/19/2020 4:43 PM PDT Station ID: [id number]
== END 2020-10-19 08:21 | disposition home or self-care (01) ==
LOC: DI 08:20
PROVIDERS: ATTEND Physician Assistant Medical
DX: M85.89 Other specified disorders of bone density and structure, multiple sites (principal)

== ENCOUNTER 2021-02-17 10:22 | Outpatient (CLI) | payer BC, OTHER ==
[2021-02-17 10:47] LABS: BASOPHILS # (AUTO) 0.1 10^3/uL (0.0-0.1); BASOPHILS % (AUTO) 1.3 %; EOSINOPHILS # (AUTO) 0.1 10^3/uL (0.0-0.7); EOSINOPHILS % (AUTO) 2.1 %; HCT - HEMATOCRIT 42.5 % (37.0-47.0); HGB - HEMOGLOBIN 14.5 g/dL (12.0-16.0); LYMPHOCYTES # (AUTO) 1.4 10^3/uL (1.5-3.5); LYMPHOCYTES % (AUTO) 36.4 %; MEAN CORPUSCULAR HEMOGLOBIN 32.2 pg (27.0-31.0); MEAN CORPUSCULAR HGB CONC 34.1 g/dL (32.0-36.0); MEAN CORPUSCULAR VOLUME 94.2 fL (81.0-99.0); MEAN PLATELET VOLUME 10.9 fL (7.9-10.8); MONOCYTES # (AUTO) 0.3 10^3/uL (0.0-1.0); MONOCYTES % (AUTO) 8.6 %; NEUTROPHILS % (AUTO) 51.3 %; PLT - PLATELET COUNT 221 10^3/uL (130-450); RED BLOOD COUNT 4.51 10^6/uL (4.20-5.40); RED CELL DISTRIBUTION WIDTH 13.5 % (12.0-15.0); WHITE BLOOD COUNT 3.8 x10^3/uL (4.8-10.8)
[2021-02-17 11:08] LABS: ALBUMIN 4.9 g/dL (3.2-5.5); ALBUMIN/GLOBULIN RATIO 1.7 (1.0-2.2); ALKALINE PHOSPHATASE 54 IU/L (42-121); ALT ALANINE AMINOTRANSFERASE 22 IU/L (10-60); AST ASPARTATE AMINOTRANSFERASE 25 IU/L (10-42); BILIRUBIN,TOTAL 1.5 mg/dL (0.2-1.0); BUN - BLOOD UREA NITROGEN 8 mg/dL (6-20); CALCIUM 9.8 mg/dL (8.5-10.3); CARBON DIOXIDE - CO2 28 mmol/L (21-32); CHLORIDE 94 mmol/L (101-111); CHOL/HDL RATIO 2.1 (<4.4); CHOLESTEROL 251 mg/dL; CREATININE 0.7 mg/dL (0.4-1.0); GFR - MDRD 86 (>89); GLUCOSE 101 mg/dL (70-100); HDL CHOLESTEROL 121 mg/dL; LDL CHOLESTEROL,CALCULATED 121 mg/dL; SODIUM 131 mmol/L (135-145); TOTAL PROTEIN 7.8 g/dL (6.7-8.2); TRIGLYCERIDES 43 mg/dL; VLDL CHOLESTEROL 9 mg/dL
[2021-02-17 11:16] LABS: THYROID STIMULATING HORMONE 2.86 uIU/mL (0.34-5.60)
== END 2021-02-17 10:23 | disposition home or self-care (01) ==
LOC: LAB 10:22
PROVIDERS: ATTEND Physician Assistant Medical
DX: Z00.00 Encounter for general adult medical examination without abnormal findings (principal); M85.80 Other specified disorders of bone density and structure, unspecified site
CPT/HCPCS: 36415; 80053; 80061; 82306; 83721; 84443; 85025

== ENCOUNTER 2021-04-08 15:31 | Outpatient (CLI) | payer BC, OTHER | END 2021-04-08 15:32 | disposition home or self-care (01) | LOC: COV 15:31 | PROVIDERS: ATTEND Family Medicine | DX: U07.1 COVID-19 (principal) ==

== ENCOUNTER 2021-04-23 09:06 | Outpatient (CLI) | payer BC, OTHER ==
--- NOTE | 2021-04-23 09:42 | CT Report ---
PROCEDURE: Sinuses INDICATIONS: SINUSITIS TECHNIQUE: Noncontrast 3.0 mm axial images acquired from the frontal sinuses to the mid-sella, with coronal and sagittal reformats. For radiation dose reduction, the following was used: automated exposure control , adjustment of mA and/or kV according to patient size. COMPARISON: Correlation is made with head CT, 12/10/2018 FINDINGS: Image quality: Excellent. Maxillary Sinuses: There is moderate right-sided and mild left-sided mucosal thickening seen. There is demineralization seen of the medial jules of the maxillary sinuses. Ethmoid Air Cells: The ethmoid air cells demonstrate at least moderate mucosal thickening. The bony s eptations of the ethmoid air cells are demineralized. Sphenoid Sinuses: No bony remodeling or destruction. Minimal mucosal thickening is seen anteriorly. Frontal Sinuses: There is moderate right-sided and mild left-sided frontal sinus mucosal thickening. No definite bony remodeling can be seen. Within the left inferomedial frontal sinus, there is an vanna arent 8 mm osteoma seen, as on series 5 image 7 and on series 3 image 22, which is stable compared to 2019. Ostiomeatal Complexes: The osteochondral complexes are highly consultation narrowed, with bilateral H aller cells. The uncinate processes are demineralized. Miscellaneous: Visualized intra-orbital contents are normal. No chasity bullosa. No nasal septal de viation. IMPRESSION: Widespread paranasal sinus disease is seen, which is overall worst within the ethmoid air cells. The paranasal sinus disease is dramatically worse compared to 2019. Areas of bony demineralization are seen, which are consistent with chronic sinusitis. Prominently narrowed ostiomeatal complexes, with prominent bilateral Marcos cells. 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
== END 2021-04-23 09:07 | disposition home or self-care (01) ==
LOC: DI 09:06
PROVIDERS: ATTEND Physician Assistant Medical
DX: J01.20 Acute ethmoidal sinusitis, unspecified (principal)

== ENCOUNTER 2021-11-08 10:47 | Outpatient (CLI) | payer BC, OTHER ==
[2021-11-08 11:18] LABS: CALCIUM 9.2 mg/dL (8.5-10.3); CREATININE 0.7 mg/dL (0.4-1.0); POTASSIUM 4.5 mmol/L (3.5-5.0)
[2021-11-08 13:51] LABS: ESTIMATED AVERAGE GLUCOSE 97 mg/dL (70-100)
== END 2021-11-08 10:48 | disposition home or self-care (01) ==
LOC: LAB 10:47
PROVIDERS: ATTEND Physician Assistant Medical
DX: R73.9 Hyperglycemia, unspecified (principal)
CPT/HCPCS: 36415; 80048; 83036

== ENCOUNTER 2022-04-10 09:24 | Outpatient (CLI) | payer OTHER ==
[2022-04-10 09:36] LABS: BASOPHILS # (AUTO) 0.1 10^3/uL (0.0-0.1); EOSINOPHILS # (AUTO) 0.2 10^3/uL (0.0-0.7); EOSINOPHILS % (AUTO) 3.2 %; HCT - HEMATOCRIT 40.7 % (37.0-47.0); HGB - HEMOGLOBIN 14.3 g/dL (12.0-16.0); LYMPHOCYTES # (AUTO) 1.4 10^3/uL (1.5-3.5); LYMPHOCYTES % (AUTO) 28.4 %; MEAN CORPUSCULAR HEMOGLOBIN 32.2 pg (27.0-31.0); MEAN CORPUSCULAR HGB CONC 35.1 g/dL (32.0-36.0); MEAN CORPUSCULAR VOLUME 91.7 fL (81.0-99.0); MONOCYTES # (AUTO) 0.4 10^3/uL (0.0-1.0); MONOCYTES % (AUTO) 7.4 %; NEUTROPHILS % (AUTO) 59.8 %; PLT - PLATELET COUNT 180 10^3/uL (130-450); RED BLOOD COUNT 4.44 10^6/uL (4.20-5.40); RED CELL DISTRIBUTION WIDTH 13.1 % (12.0-15.0)
[2022-04-10 09:54] LABS: ALBUMIN 4.7 g/dL (3.2-5.5); ALBUMIN/GLOBULIN RATIO 1.6 (1.0-2.2); ALKALINE PHOSPHATASE 47 IU/L (42-121); ALT ALANINE AMINOTRANSFERASE 21 IU/L (10-60); AST ASPARTATE AMINOTRANSFERASE 27 IU/L (10-42); BUN - BLOOD UREA NITROGEN 15 mg/dL (6-20); CALCIUM 9.2 mg/dL (8.5-10.3); CARBON DIOXIDE - CO2 28 mmol/L (21-32); CHLORIDE 99 mmol/L (101-111); CHOL/HDL RATIO 2.3 (<4.4); CHOLESTEROL 245 mg/dL; CREATININE 0.8 mg/dL (0.4-1.0); GFR - MDRD 74 (>89); GLUCOSE 107 mg/dL (70-100); HDL CHOLESTEROL 105 mg/dL; LDL CHOLESTEROL,CALCULATED 129 mg/dL; LDL/HDL RATIO 1.2 (<4.4); POTASSIUM 4.4 mmol/L (3.5-5.0); SODIUM 135 mmol/L (135-145); TOTAL PROTEIN 7.7 g/dL (6.7-8.2); TRIGLYCERIDES 55 mg/dL; VLDL CHOLESTEROL 11 mg/dL
== END 2022-04-10 09:25 | disposition home or self-care (01) ==
LOC: LAB 09:24
PROVIDERS: ATTEND Physician Assistant Medical
DX: Z00.00 Encounter for general adult medical examination without abnormal findings (principal)
CPT/HCPCS: 36415; 80053; 80061; 83721; 85025

== ENCOUNTER 2022-07-07 08:47 | Outpatient (CLI) | payer OTHER | END 2022-07-07 08:48 | disposition home or self-care (01) | LOC: LAB 08:47 | PROVIDERS: ATTEND Physician Assistant Medical | DX: R53.83 Other fatigue (principal) | CPT/HCPCS: 81291; 81599 ==

== ENCOUNTER 2022-07-26 07:55 | Outpatient (CLI) | payer OTHER | END 2022-07-26 07:56 | disposition home or self-care (01) | LOC: LAB 07:55 | PROVIDERS: ATTEND Physician Assistant Medical | DX: R53.83 Other fatigue (principal) | CPT/HCPCS: 36415; 82533 ==

== ENCOUNTER 2023-02-26 08:22 | Outpatient (CLI) | payer OTHER ==
--- NOTE | 2023-02-26 09:28 | Ultrasound Report ---
PROCEDURE: Pelvic w/Transvaginal INDICATIONS: POST MENOPAUSAL MENORRHAGIA TECHNIQUE: Real-time scanning was performed of the pelvic organs, with image documentation. Additional endovagi nal scanning was necessary due to incomplete visualization of the adnexal and endometrial structures by transabdominal scanning. COMPARISON: Pelvic ultrasound 03/03/2018 FINDINGS: Uterus: Uterus is anteverted and normal in size at 7.1 x 3.6 x 5.1 cm. The myometrium is homogeneou s. The endometrium measures 4.8 mm in combined thickness. There is a right anterior submucosal fibr oid measuring 1.4 x 0.9 x 1.1 cm, mildly increased in size compared to prior previously measuring 0.9 x 1.0 x 1.0 cm. Intrauterine device in place. Ovaries: The right ovary measures 2.1 x 0.9 x 2.2 cm, with a calculated ovarian volume of 2.3 cc. T he left ovary measures 1.7 x 1.1 x 0.9 cm, with a calculated ovarian volume of .9 cc. The ovaries swan ve a normal sonographic appearance. Less than 12 follicles can be seen in each ovary. No adnexal ma sses are seen. No cystic lesions measuring greater than 3 cm. Other: No pathologic free abdominal or pelvic fluid. IMPRESSION: 1.The endometrium is normal in thickness measuring 4.8 mm. Intrauterine device is noted. 2.Small uterine fibroid is mildly increased in size compared to prior. 3.The ovaries are normal in appearance. Reviewed by: Doug Stovall MD on 02/26/2023 9:27 AM PDT Approved by: Doug Stovall MD on 02/26/2023 9:27 AM PDT Station ID: [id number]
== END 2023-02-26 08:23 | disposition home or self-care (01) ==
LOC: DI 08:22
PROVIDERS: ATTEND Physician Assistant Medical
DX: N95.0 Postmenopausal bleeding (principal); D25.0 Submucous leiomyoma of uterus; Z97.5 Presence of (intrauterine) contraceptive device

== ENCOUNTER 2023-04-16 11:31 | Outpatient (CLI) | payer OTHER ==
[2023-04-16 11:42] LABS: BASOPHILS % (AUTO) 0.3 %; EOSINOPHILS # (AUTO) 0.1 10^3/uL (0.0-0.7); EOSINOPHILS % (AUTO) 1.3 %; HCT - HEMATOCRIT 36.6 % (37.0-47.0); HGB - HEMOGLOBIN 12.4 g/dL (12.0-16.0); LYMPHOCYTES # (AUTO) 1.2 10^3/uL (1.5-3.5); LYMPHOCYTES % (AUTO) 32.1 %; MEAN CORPUSCULAR HEMOGLOBIN 31.1 pg (27.0-31.0); MEAN CORPUSCULAR HGB CONC 33.9 g/dL (32.0-36.0); MEAN CORPUSCULAR VOLUME 91.7 fL (81.0-99.0); MEAN PLATELET VOLUME 10.9 fL (7.9-10.8); MONOCYTES # (AUTO) 0.3 10^3/uL (0.0-1.0); MONOCYTES % (AUTO) 7.2 %; NEUTROPHILS # (AUTO) 2.2 10^3/uL (1.5-6.6); NEUTROPHILS % (AUTO) 59.1 %; PLT - PLATELET COUNT 160 10^3/uL (130-450); RED BLOOD COUNT 3.99 10^6/uL (4.20-5.40); RED CELL DISTRIBUTION WIDTH 12.7 % (12.0-15.0); WHITE BLOOD COUNT 3.7 x10^3/uL (4.8-10.8)
[2023-04-16 12:01] LABS: ALBUMIN 4.3 g/dL (3.2-5.5); ALBUMIN/GLOBULIN RATIO 1.5 (1.0-2.2); ALKALINE PHOSPHATASE 45 IU/L (42-121); ALT ALANINE AMINOTRANSFERASE 14 IU/L (10-60); AST ASPARTATE AMINOTRANSFERASE 19 IU/L (10-42); BILIRUBIN,TOTAL 0.6 mg/dL (0.2-1.0); BUN - BLOOD UREA NITROGEN 12 mg/dL (6-20); CALCIUM 9.1 mg/dL (8.5-10.3); CARBON DIOXIDE - CO2 28 mmol/L (21-32); CHLORIDE 102 mmol/L (101-111); CHOL/HDL RATIO 2.6 (<4.4); CHOLESTEROL 176 mg/dL; CREATININE 0.6 mg/dL (0.6-1.3); GFR - MDRD 102 (>89); GLUCOSE 96 mg/dL (74-104); HDL CHOLESTEROL 67 mg/dL; LDL CHOLESTEROL,CALCULATED 92 mg/dL; LDL/HDL RATIO 1.4 (<4.4); POTASSIUM 4.5 mmol/L (3.5-4.5); SODIUM 136 mmol/L (135-145); TOTAL PROTEIN 7.2 g/dL (6.4-8.9); TRIGLYCERIDES 87 mg/dL (48-352); VLDL CHOLESTEROL 17 mg/dL
[2023-04-16 12:13] LABS: THYROID STIMULATING HORMONE 1.85 uIU/mL (0.34-5.60)
== END 2023-04-16 11:32 | disposition home or self-care (01) ==
LOC: LAB 11:31
PROVIDERS: ATTEND Physician Assistant Medical
DX: Z00.00 Encounter for general adult medical examination without abnormal findings (principal)
CPT/HCPCS: 36415; 80053; 80061; 83721; 84443; 85025

== ENCOUNTER 2023-05-18 08:00 | Outpatient (CLI) | payer OTHER | END 2023-05-18 23:59 | disposition home or self-care (01) | LOC: LAB.N 08:00 | PROVIDERS: ATTEND Family Medicine | DX: R07.0 Pain in throat (principal) | CPT/HCPCS: 87070 ==

== ENCOUNTER 2023-08-30 13:37 | Outpatient (CLI) | payer OTHER ==
[2023-08-30 15:37] LABS: CRP - C-REACTIVE PROTEIN < 0.5 mg/dL (<0.5); URIC ACID 4.7 mg/dL (2.3-6.6)
[2023-08-30 15:57] LABS: RHEUMATOID FACTOR NEGATIVE (Negative)
--- NOTE | 2023-08-30 19:21 | XRAY Report ---
PROCEDURE: Hand 1-2V BL INDICATIONS: HAND ARTHRITIS TECHNIQUE: 2 views of the hand(s) acquired. COMPARISON: None. FINDINGS: Bones: No fractures or dislocations. No osseous erosion seen. Minimal degenerative changes. No susp icious bony lesions. Soft tissues: No suspicious soft tissue calcifications or masses. IMPRESSION: No osseous erosion seen. Minimal degenerative changes. Reviewed by: Tigre Palacios MD on 08/30/2023 7:20 PM PST Approved by: Tigre Palacios MD on 08/30/2023 7:20 PM PST Station ID: [id number]
[2023-08-31 18:08] LABS: ANTI-DNA (DS) AB QN 4 IU/mL (0-9)
[2023-09-01 16:09] LABS: CYCLIC CITRULLINATED PEP IGG/A 8 units (0-19)
[2023-09-02 17:10] LABS: ANTINUCLEAR ANTIBODIES IFA Negative (.)
== END 2023-08-30 13:38 | disposition home or self-care (01) ==
LOC: LAB 13:37
PROVIDERS: ATTEND Physician Assistant Medical
DX: M19.049 Primary osteoarthritis, unspecified hand (principal); M19.042 Primary osteoarthritis, left hand; M19.041 Primary osteoarthritis, right hand
CPT/HCPCS: 36415; 84550; 85651; 86038; 86140; 86200; 86225; 86430

== ENCOUNTER 2023-11-06 19:18 | Outpatient (CLI) | payer OTHER ==
--- NOTE | 2023-11-07 09:56 | Ultrasound Report ---
PROCEDURE: Soft Tissue Head or Neck INDICATIONS: THYROID CYST TECHNIQUE: Real-time scanning was performed of the thyroid gland, with image documentation. COMPARISON: 03/08/2022 FINDINGS: Right: Thyroid lobe measures 5.2 x 1.1 x 1.3 cm, and is homogeneous in echotexture. Left: Thyroid lobe measures 5.9 x 1.6 x 1.8 cm, and is homogenous in echotexture. Isthmus: 0.2 cm thick. Nodule number: One Location: Right mid Size: 0.9 x 0.6 x 0.7 cm, previously 0.6 x 0.5 x 0.6 cm. Composition: Solid (2 points). Echogenicity: Isoechoic (1 point). Shape: wider than tall (0 points). Margins: Smooth (0 points). Echogenic foci: None (0 points). Total points: 3 ACR TI-RADS category: TI-RADS 3: Mildly suspicious. Nodule number: Two Location: Left inferior Size: 2.4 x 1.4 x 1.6 cm, previously 2.9 x 1.2 x 2.0 cm. Composition: Cystic / almost completely cystic, septated (0 points). Echogenicity: Anechoic (0 points). Shape: wider than tall (0 points). Margins: Smooth (0 points). Echogenic foci: None (0 points). Total points: 0 ACR TI-RADS category: TI-RADS 1: Benign IMPRESSION: 1.Mild increased size of subcentimeter right thyroid nodule. No follow-up is necessary based on below criteria, however given continued growth, consider two-year follow-up. 2.Similar left thyroid lobe septated cyst. ACR TI-RADS definitions and recommendations: TI-RADS 1 (benign): 0 points. FNA not needed. TI-RADS 2 (not suspicious): 2 points. FNA not needed. TI-RADS 3 (mildly suspicious): 3 points. "FNA if 2.5 cm or larger, follow up if 1.5 cm or larger (at 1, 3, and 5 years). TI-RADS 4 (moderately suspicious): 4-6 points. "FNA if 1.5 cm or larger, follow up if 1 cm or larger (at 1, 2, 3, and 5 years). TI-RADS 5 (highly suspicious): 7 points or more. "FNA if 1 cm or larger, follow up if 0.5 cm or larger (every year for 5 years). Reviewed by: Doug Stovall MD on 11/07/2023 9:55 AM PDT Approved by: Doug Stovall MD on 11/07/2023 9:55 AM PDT Station ID: [id number]
== END 2023-11-06 19:19 | disposition home or self-care (01) ==
LOC: DI 19:18
PROVIDERS: ATTEND Physician Assistant Medical
DX: E04.2 Nontoxic multinodular goiter (principal)

== ENCOUNTER 2024-03-24 16:35 | Outpatient (CLI) | payer OTHER ==
--- NOTE | 2024-03-25 17:15 | Ultrasound Report ---
PROCEDURE: Soft Tissue Head or Neck INDICATIONS: THYROID CYST TECHNIQUE: Real-time scanning was performed of the thyroid gland, with image documentation. COMPARISON: 03/08/2022 FINDINGS: Right: Thyroid lobe measures 4.9 x 1.2 x 1.7 cm. Left: Thyroid lobe measures 5.4 x 1.5 x 1.2 cm Isthmus: 0.2 cm thick. Echotexture: Homogeneous. Nodule number: One Location: Right superior Size: 0.9 x 0.7 x 0.7 cm, previously 0.6 x 0.5 x 0.6 cm. Composition: Solid. Echogenicity: Hypoechoic. Shape: wider than tall (0 points). Margins: Smooth (0 points). Echogenic foci: None (0 points). Total points: 4 ACR TI-RADS category: 4 Nodule number: Two Location: Left inferior Size: 3.5 x 1.5 x 1.5 cm, previously 2.9 x 1.2 x 2.0 cm. Composition: Cystic. Echogenicity: Anechoic. Shape: wider than tall (0 points). Margins: Smooth (0 points). Echogenic foci: None (0 points). Total points: 0 ACR TI-RADS category: 1 IMPRESSION: Benign left thyroid cyst is slightly larger than the prior exam ACR TI-RADS definitions and recommendations: TI-RADS 1 (benign): 0 points. FNA not needed. TI-RADS 2 (not suspicious): 2 points. FNA not needed. TI-RADS 3 (mildly suspicious): 3 points. "FNA if 2.5 cm or larger, follow up if 1.5 cm or larger (at 1, 3, and 5 years). TI-RADS 4 (moderately suspicious): 4-6 points. "FNA if 1.5 cm or larger, follow up if 1 cm or larger (at 1, 2, 3, and 5 years). TI-RADS 5 (highly suspicious): 7 points or more. "FNA if 1 cm or larger, follow up if 0.5 cm or larger (every year for 5 years). Reviewed by: Asim Sahu MD on 03/25/2024 4:14 PM [facility] Approved by: Asim Sahu MD on 03/25/2024 4:14 PM [facility] Station ID: [id number]
== END 2024-03-24 16:36 | disposition home or self-care (01) ==
LOC: DI 16:35
PROVIDERS: ATTEND Nurse Practitioner Family
DX: E04.2 Nontoxic multinodular goiter (principal)